=== PATIENT | male | born 1955 | race Caucasian/White ===

== ENCOUNTER 2019-08-10 16:51 | Emergency (ER) | payer MEDICARE ==
[2019-08-10] MEDS ORDERED: ASPIRIN 81 MG TABLET, CHEWABLE PO ONE (17:27)
[2019-08-10] MEDS ORDERED: METOCLOPRAMIDE HCL INJ/PF 10 MG/2 ML SDV IV ONE (17:28)
[2019-08-10] MEDS ORDERED: DIPHENHYDRAMINE HCL 50 MG/ML VIAL IV ONE (17:28)
[2019-08-10] MEDS ORDERED: NORMAL SALINE 1000 ML 1,000 ML IV ONE (17:28)
[2019-08-10] MEDS ORDERED: KETOROLAC TROMETHAMINE INJ/PF 30 MG/1 ML SDV IV ONE (17:28)
[2019-08-10 17:33] LABS: ABSOLUTE BASOPHILS # (AUTO) 0.1 10^3/uL (0.0-0.2); ABSOLUTE EOSINOPHILS # (AUTO) 0.1 10^3/uL (0.0-0.6); ABSOLUTE LYMPHOCYTES (AUTO) 1.2 10^3/uL (0.5-4.7); ABSOLUTE MONOCYTES (AUTO) 0.3 10^3/uL (0.1-1.4); ABSOLUTE NEUT (AUTO) 3.5 10^3/uL (1.7-8.2); EOSINOPHILS % (AUTO) 2.6 % (0-6); HEMATOCRIT 41.1 % (37.9-51.0); LYMPHOCYTES % (AUTO) 23.5 % (13-45); MEAN CORPUSCULAR HEMOGLOBIN 32.5 pg (27.0-33.4); MEAN CORPUSCULAR HGB CONC 34.1 g/dL (32.0-36.0); MEAN CORPUSCULAR VOLUME 95 fl (80-97); MONOCYTES % (AUTO) 5.4 % (3-13); PLATELET COUNT 140 10^3/uL (150-450); RED BLOOD COUNT 4.31 10^6/uL (4.35-5.55); SEGMENTED NEUTROPHILS % (AUTO) 67.5 % (42-78); TOTAL CELLS COUNTED % (AUTO) 100 %; WHITE BLOOD COUNT 5.2 10^3/uL (4.0-10.5)
--- NOTE | 2019-08-10 17:47 | RADIOLOGY REPORT (SQ) ---
EXAM DESCRIPTION: CHEST SINGLE VIEW COMPLETED DATE/TIME: 08/10/2019 5:11 pm REASON FOR STUDY: chest pain COMPARISON: None. EXAM PARAMETERS: NUMBER OF VIEWS: One view. TECHNIQUE: Single frontal radiographic view of the chest acquired. RADIATION DOSE: NA LIMITATIONS: None. FINDINGS: LUNGS AND PLEURA: No opacities, masses or pneumothorax. No pleural effusion. MEDIASTINUM AND HILAR STRUCTURES: No masses. Contour normal. HEART AND VASCULAR STRUCTURES: Heart normal in size. Normal vasculature. BONES: No acute findings. HARDWARE: Partially imaged cervical ACDF hardware. OTHER: No other significant finding. IMPRESSION: NO ACUTE RADIOGRAPHIC FINDING IN THE CHEST. TECHNICAL DOCUMENTATION: JOB ID: [id number] [employer]- All Rights Reserved Reading location - IP/workstation name: [email or web address]
[2019-08-10 18:00] LABS: CREATINE KINASE MB 0.67 ng/mL (<4.55)
[2019-08-10 18:01] LABS: ALBUMIN 4.2 g/dL (3.5-5.0); ALKALINE PHOSPHATASE 101 U/L (38-126); ANION GAP 9 (5-19); ASPARTATE AMINO TRANSFERASE 43 U/L (17-59); BILIRUBIN,DIRECT 0.2 mg/dL (0.0-0.4); BILIRUBIN,TOTAL 0.5 mg/dL (0.2-1.3); BLOOD UREA NITROGEN 12 mg/dL (7-20); CALCIUM 9.5 mg/dL (8.4-10.2); CARBON DIOXIDE 28 mmol/L (22-30); CHLORIDE 106 mmol/L (98-107); CREATINE KINASE 51 U/L (55-170); GLUCOSE 104 mg/dL (75-110); POTASSIUM 4.5 mmol/L (3.6-5.0); TOTAL PROTEIN 7.9 g/dL (6.3-8.2); TROPONIN I < 0.012 ng/mL
[2019-08-10] MEDS ORDERED: LISINOPRIL 10 MG TABLET PO ONE ×2 (20:39)
--- NOTE | 2019-08-10 20:45 | ER Document Report ---
ED General - General Chief Complaint: Chest Pain > 30 Stated Complaint: CHEST PAIN Time Seen by Provider: 08/10/19 17:13 - HPI Notes: Patient is a 64-year-old male with a history of coronary artery disease and high blood pressure presents to the emergency department for evaluation of headache as well as chest pain. He states he had a headache for the last 3 days. Is behind his eyes in the back of his head. He states this is typical of his migraine headaches. He states today, lying on his stomach, you develop chest pain. He really cannot describe it for me. He states he has had pain like this in the past. He denies any associated nausea, shortness of breath, diaphoresis, near syncope. It is in the lower substernal/xiphoid region. He states this does not feel like the pain is had with his heart in the past. - Related Data Allergies/Adverse Reactions: No Known Allergies Allergy (Verified 08/10/19 17:38) Home Medications: Patient is unsure. He states he ran out of his medication several weeks ago. He believes he is on lisinopril for blood pressure, but cannot really tell me any other medications he takes daily. Past Medical History - General Information source: Patient - Social History Smoking Status: Current Every Day Smoker Frequency of alcohol use: None Drug Abuse: None Family History: Reviewed & Not Pertinent Patient has suicidal ideation: No Patient has homicidal ideation: No - Past Medical History Cardiac Medical History: Reports: Hx Coronary Artery Disease, Hx Hypertension Past Surgical History: Reports: Hx Cardiac Surgery - stent x4 Review of Systems - Review of Systems Constitutional: No symptoms reported EENT: No symptoms reported Cardiovascular: See HPI Respiratory: No symptoms reported Gastrointestinal: No symptoms reported Genitourinary: No symptoms reported Musculoskeletal: No symptoms reported Skin: No symptoms reported Neurological/Psychological: See HPI Physical Exam - Vital signs Vitals: Resp Pulse Ox 9 L 98 08/10/19 17:18 08/10/19 17:18 - Notes Notes: This is a 64-year-old male who appears his stated age, and mild to moderate distress. The bright light in his eyes worsens his pain. Vital signs reviewed, please refer to chart. Head is normocephalic, atraumatic. Pupils equal round, reactive to light. Neck is supple without meningismus. Heart is regular rate and rhythm. Lungs are clear to auscultation bilaterally. Abdomen is soft, minimally tender in the epigastrium without rebound or guarding, normoactive bowel sounds throughout. Extremities without cyanosis, clubbing. Posterior calves are nontender. Peripheral pulses are equal. Skin is warm and dry. Patient is awake, alert, oriented x3. Cranial nerves II - XII are grossly intact without focal neurological deficits. Strength is plus 5 out of 5 bilateral upper and lower extremities. Sensation is intact. Reflexes symmetrical. Intact [id number], rapid alternating movements, [id number]. Course - Re-evaluation Re-evalutation: 08/10/19 20:41 Patient presents to the emergency department for evaluation. He has a headache and chest pain. His headache is typical of his normal migraines. Is worsened with light, he says associated nausea. He had atypical chest pain and some abdominal tenderness. Laboratory investigations here were ordered, found to be unremarkable, including troponin x2. His EKG was unremarkable for any acute changes. The patient is feeling entirely improved, has no chest pain or headache after migraine cocktail. I will send him home, have him follow-up closely with primary care. I will send him home with a prescription for li sinopril 20 mg, as it does appear this but he takes daily. He is strongly encouraged to follow-up with his primary care physician, in the [place], as soon as possible. He voiced understanding and was discharged. - Vital Signs Vital signs: Temp Pulse Resp BP Pulse Ox 98.1 F 68 20 194/124 H 97 08/10/19 21:07 08/10/19 20:48 08/10/19 21:07 08/10/19 21:18 08/10/19 21:07 - Laboratory Result Diagrams: 08/10/19 17:19 08/10/19 17:19 Laboratory results interpreted by me: 08/10/19 08/10/19 17:19 17:19 RBC 4.31 L RDW 16.0 H Plt Count 140 L Creatine Kinase 51 L - Diagnostic Test Radiology reviewed: Reports reviewed Radiology results interpreted by me: 08/10/19 20:42 Chest X-Ray 08/10/19 16:59 IMPRESSION: NO ACUTE RADIOGRAPHIC FINDING IN THE CHEST. - EKG Interpretation by Me Additional EKG results interpreted by me: 08/10/19 20:42 Sinus mechanism with a rate of 62 bpm. Normal axis. First-degree AV block. Nonspecific ST changes, but no acute changes concerning for ischemia or infarction. Discharge - Discharge Clinical Impression: Noncompliance with medication regimen Chest pain Qualifiers: Chest pain type: other chest pain Qualified Code(s): R07.89 - Other chest pain Migraine Qualifiers: Migraine type: without aura Status migrainosus presence: without status migrainosus Intractability: not intractable Qualified Code(s): G43.009 - Migraine without aura, not intractable, without status migrainosus Hypertension Qualifiers: Hypertension type: essential hypertension Qualified Code(s): I10 - Essential (primary) hypertension Disposition: HOME, SELF-CARE Instructions: Chest Pain of Unclear Cause ([facility]), High Blood Pressure, Requiring Treatment ([facility]), Migraine Headache ([facility]) Additional Instructions: He need to follow-up with your primary care physician as soon as possible. Rest, stay well-hydrated. Take lisinopril as directed, starting tomorrow. If you develop worsening or new concerning symptoms of any sort, please return immediately to the emergency department for reevaluation. Prescriptions: Lisinopril [Prinivil] 20 mg PO DAILY #30 tablet
[2019-08-10 21:19] VITALS: BP 194/124
--- NOTE | 2019-08-11 01:13 | EKG REPORT ---
SEVERITY:- ABNORMAL ECG - SINUS RHYTHM FIRST DEGREE AV BLOCK : Confirmed by: Kaitlynn Ashraf MD 11-Aug-2019 01:12:52
== END 2019-08-10 21:19 | disposition home or self-care (01) ==
LOC: ER 16:51
DX: G43.009 Migraine without aura, not intractable, without status migrainosus (principal); I10 Essential (primary) hypertension; R07.89 Other chest pain; Z91.14 Patient's other noncompliance with medication regimen; I25.10 Atherosclerotic heart disease of native coronary artery without angina pectoris; F17.200 Nicotine dependence, unspecified, uncomplicated
CPT/HCPCS: 93005; 36415; 82553; 82550; 83690; 85025; 80053; 84484; 71045; 93010; A9270 ×2; J1200; J1885; J2765; J7030; 96361; 96374; 96375; 99285